=== PATIENT | male | born 1935 | race Caucasian/White ===

== ENCOUNTER 2021-07-08 05:13 | Inpatient (IN) | payer MEDICARE, BC ==
[~2021-07-08] VITALS: Ht 182.9 cm; Wt 63.5 kg
[~2021-07-08 05:13] MED LIST: ELIMITE 5% CREA60 GM TOP
[2021-07-08 05:36] LABS: HEMOGLOBIN 14.3 gm/dl (14.0-17.5); RED BLOOD COUNT 4.37 M/UL (4.20-5.50); WHITE BLOOD COUNT 7.5 K/UL (4.5-11.0)
[2021-07-08 05:57] LABS: BUN/CREATININE RATIO 20 (0-10)
[2021-07-08] MEDS ORDERED: KENALOG CREAM 015 GM TOP (13:07)
[2021-07-08] MEDS ORDERED: TRAMADOL HCL50 MG PO (13:07)
[2021-07-08] MEDS ORDERED: PLAVIX75 MG PO (13:07)
[2021-07-08] MEDS ORDERED: PAROXETINE HCL10 MG PO (13:08)
[2021-07-08] MEDS ORDERED: LEVOTHYROXINE100 MCG PO (13:08)
[2021-07-08] MEDS ORDERED: SIMVASTATIN20 MG PO (13:08)
[2021-07-08] MEDS ORDERED: PROTONIX 40 MG40 M1 PO (13:09)
[2021-07-08 15:00] LABS: HEMOGLOBIN 12.6 gm/dl (14.0-17.5)
[2021-07-08 15:01] LABS: RED BLOOD COUNT 3.84 M/UL (4.20-5.50); WHITE BLOOD COUNT 9.6 K/UL (4.5-11.0)
[2021-07-08 15:29] LABS: BUN/CREATININE RATIO 20 (0-10)
--- NOTE | 2021-07-09 02:15 | NUR ---
1999 PT KEEPS TRYING TO GET OUT OF BED TO VOID. URINAL AND ASSISTANCE IS GIVEN TO PT BUT HAVING LOW OUTPUT. 2029 BLADDER SCANNER IS DONE AND PT HAS 420ML. NOTIFIED AND RECIEVED ORDER FOR CAMPA CATH. CAMPA CATH IS PLACE AND PT TOLERATED WELL. APPROX 0015 TECH FINDS PT SITTING ON SIDE OF BED, PT HAS PULLED CAMPA OUT AND IV. PT IS CONFUSED STATES HE NEED TO GET UP TO PEE. NOTIFIED. GEODON 10MG IS ORDERED AND ADMINSTERED. PT IS RESTING COMFORTABLY AT THIS TIME. WILL CONTINUE TO MONITOR PT.
[2021-07-09 04:16] LABS: HEMOGLOBIN 11.6 gm/dl (14.0-17.5); RED BLOOD COUNT 3.52 M/UL (4.20-5.50); WHITE BLOOD COUNT 8.6 K/UL (4.5-11.0)
[2021-07-09 04:27] LABS: BUN/CREATININE RATIO 28 (0-10)
[2021-07-10 07:51] LABS: HEMOGLOBIN 10.4 gm/dl (14.0-17.5); RED BLOOD COUNT 3.22 M/UL (4.20-5.50); WHITE BLOOD COUNT 7.8 K/UL (4.5-11.0)
[2021-07-10 08:25] LABS: BUN/CREATININE RATIO 27 (0-10)
[2021-07-11 07:06] LABS: RED BLOOD COUNT 2.79 M/UL (4.20-5.50); WHITE BLOOD COUNT 5.5 K/UL (4.5-11.0)
[2021-07-11 07:22] LABS: BUN/CREATININE RATIO 23 (0-10)
[2021-07-12 06:14] LABS: HEMOGLOBIN 9.5 gm/dl (14.0-17.5); RED BLOOD COUNT 2.89 M/UL (4.20-5.50); WHITE BLOOD COUNT 5.2 K/UL (4.5-11.0)
[2021-07-12 06:20] LABS: BUN/CREATININE RATIO 21 (0-10)
[2021-07-15] MEDS ORDERED: LOPRESSOR 25 MG25 MG PO (08:57)
[2021-07-15] MEDS ORDERED: DOCUSATE SODIU100 MG PO (08:57)
[2021-07-15] MEDS ORDERED: FLOMAX 0.4 MG0.4 MG PO (08:57)
[2021-07-15] MEDS ORDERED: SENNA LAX8.6 MG PO (08:57)
[2021-07-15] MEDS ORDERED: POLYETHYLENE GL17 GM PO (08:57)
[2021-07-15] MEDS ORDERED: ENOXAPARIN40 MG/0.4 SC (08:57)
[2021-07-16 11:31] LABS: HEMOGLOBIN 9.7 gm/dl (14.0-17.5); RED BLOOD COUNT 2.95 M/UL (4.20-5.50)
[2021-07-16 12:02] LABS: BUN/CREATININE RATIO 18 (0-10)
== END 2021-07-16 13:00 | DRG 480 ==
LOC: ER1 05:13 → CDU 06:47 → M/S 06:47
PROVIDERS: Family Medicine; Internal Medicine; Internal Medicine Infectious Disease; Orthopaedic Surgery; Physician Assistant; Physician Assistant Medical; ADMIT Internal Medicine
PROC: 0QS606Z Reposition Right Upper Femur with Intramedullary Internal Fixation Device, Open Approach (ICD-10-PCS; principal; 2021-07-08 18:00)
PROC: 0T9B70Z Drainage of Bladder with Drainage Device, Via Natural or Artificial Opening (ICD-10-PCS; 2021-07-10)
DX: S72.141A Displaced intertrochanteric fracture of right femur, initial encounter for closed fracture (principal); G92.8 Other toxic encephalopathy; I48.20 Chronic atrial fibrillation, unspecified; I50.22 Chronic systolic (congestive) heart failure; J44.9 Chronic obstructive pulmonary disease, unspecified; E78.5 Hyperlipidemia, unspecified; I25.10 Atherosclerotic heart disease of native coronary artery without angina pectoris; Z20.822 Contact with and (suspected) exposure to COVID-19; E03.9 Hypothyroidism, unspecified; T40.605A Adverse effect of unspecified narcotics, initial encounter; R33.9 Retention of urine, unspecified; I11.0 Hypertensive heart disease with heart failure; I25.5 Ischemic cardiomyopathy; K59.00 Constipation, unspecified; I34.0 Nonrheumatic mitral (valve) insufficiency; I77.819 Aortic ectasia, unspecified site; I35.1 Nonrheumatic aortic (valve) insufficiency; W18.39XA Other fall on same level, initial encounter; Z88.0 Allergy status to penicillin; Z82.49 Family history of ischemic heart disease and other diseases of the circulatory system; Z95.1 Presence of aortocoronary bypass graft; Z87.891 Personal history of nicotine dependence; Z95.810 Presence of automatic (implantable) cardiac defibrillator
CPT/HCPCS: ECHO; 36415; 71045; 73502; 73552; 73560; 76000; 80048; 80053; 81001; 82550; 82553; 83735; 83874; 84484; 85007; 85025; 85027; 85610; 86850; 86900; 86901; 93005; 93306; 94640; 94760; 96374; 96375; 97110; 97110-GP-CQ; 97116-GP-CQ; 97161; 97166; 97530-GP-CQ; 99285; C1713; J0690; J1100; J1650; J2060; J2270; J2405; J2704; J2795; J3486; J7030; J7120; J7121; U0002